=== PATIENT | female | born 1960 ===

== ENCOUNTER 2019-08-02 08:19 | Day surgery (SDC) | payer BC, OTHER ==
[~2019-08-02 08:19] MED LIST: ALBU90OI INH; CRUTCH4 USE; ERYT333ERA PO; GUAPHELA PO; HYDGUAL120 PO; HYDR1TAB94 PO; IBUP800 PO; METPRE4DP PO; PRED20 PO; PROM25 PO; Prednisone20 MG PO; SPACE CHAMBER1 EACH MC
== END 2019-08-02 22:41 | disposition home or self-care (01) ==
LOC: MOI US 08:19 → MOI MAM 09:00 → MOI US 22:41
DX: D24.1 Benign neoplasm of right breast (principal)
CPT/HCPCS: 19083; 77065; A4648